=== PATIENT | male | born 1965 | race Two or more races ===

== ENCOUNTER 2025-02-11 15:43 | Emergency (ER) | payer OTHER, SELFPAY ==
[2025-02-11 16:26] VITALS: BP 115/67; PULSE 84; RESP 16; TEMP 37; O2SAT 96; BMI 27.3
--- NOTE | 2025-02-11 16:30 | XR_ITS ---
Examination: CT lumbar spine, without contrast. 2-D sagittal reconstructions. 2-D coronal reconstructions. 3-D reconstructions. Date and time of exam:February 11, 2025 1752 hours INDICATIONS: Onset back pain beginning 2 days ago CTDI: vol (mGy):21.2 DLP: (mGycm):637 Technique: Multiple 1.25 mm axial sections of the lumbar spine without intravenous contrast have been obtained. 2-D sagittal and coronal reconstructions have been obtained. 3-D reconstructions have been obtained. Low dose protocols were performed. One or more of the following dose reduction techniques were used; automated exposure control, adjustment of the mA and/or KV according to patient size, use of iterative reconstruction technique. Findings: Adequate alignment lumbar vertebral bodies on the lateral view Mild disc narrowing L4-L5, L5-S1 No spondylolisthesis. Lumbar pedicles, laminae, transverse and posterior spinous processes are intact L5-S1 no disc protrusion L4-L5 moderate overall spinal stenosis, axial image 67, 4 mm central lumbar disc bulge, facet arthropathy and thickening of ligamenta flava with mild bilateral L4 ganglionic compression L3-L4 no disc protrusion L2-L3 no disc protrusion L1-L2 no disc protrusion IMPRESSION: L4-L5 moderate overall spinal stenosis, 4 mm central lumbar disc bulge, facet arthropathy and thickening of ligamentum flavum with mild bilateral L4 ganglionic compression
--- NOTE | 2025-02-11 16:30 | PD.EDRME ---
Rapid Medical Screening Exam RME Arrival date/time: 02/11/25 15:43 This is a case of 60-year-old male who came in in the emergency room due to lower back pain patient has history of back surgery patient have on and off lower back pain until today worsening of the pain now with pain radiating to the left lower extremities with tingling sensation denies any numbness weakness or incontinence to urine or stool Chief Complaint: Back Pain/Injury Time Seen by Provider: 02/11/25 16:30 Vital signs: Vital Signs Temperature 98.6 F 02/11/25 16:26 Pulse Rate 84 02/11/25 16:26 Respiratory Rate 16 02/11/25 16:26 Blood Pressure 115/67 02/11/25 16:26 Pulse Oximetry (%) 96 02/11/25 16:26 Oxygen Delivery Method Room Air 02/11/25 16:26
[2025-02-11 20:47] VITALS: BP 122/74; PULSE 76; RESP 16; TEMP 36.8; O2SAT 97
[2025-02-11] MEDS: KETOROLAC INJ 60 MG/2 ML VIAL 30 MG IM (20:47)
== END 2025-02-11 21:10 | disposition left against medical advice (07) ==
LOC: SERX 17:12
PROVIDERS: Emergency Provider Emergency Medicine; PCP Family Medicine
DX: M47.816 Spondylosis without myelopathy or radiculopathy, lumbar region (principal); Z53.29 Procedure and treatment not carried out because of patient's decision for other reasons; M48.061 Spinal stenosis, lumbar region without neurogenic claudication; G95.29 Other cord compression
CPT/HCPCS: 72131; 96372; 99281; J1885

== ENCOUNTER 2025-02-13 04:07 | Emergency (ER) | payer MEDICARE, MEDICAID, SELFPAY ==
[2025-02-13] VITALS (10 sets, daily range): BP systolic 111–150; BP diastolic 68–88; PULSE 67–84; RESP 16–19; TEMP 36.4–37; O2SAT 92–97; BMI 27.3
--- NOTE | 2025-02-13 04:15 | EDNOTE_ITS ---
ED Back Injury Pain RME/HPI General Chief Complaint: Back Pain/Injury Stated Complaint: BACK PAIN Time Seen by Provider: 02/13/25 04:16 Arrival date/time: 02/13/25 04:07 RME / HPI RME / HPI Narrative: Dr. Hernandez?s Main ED Evaluation: 60yo male with a history of chronic back pain after a fall down the stairs 3 years ago [place] from home presents to the ED for a chief complaint of chronic back pain that radiates down to his legs. Patient states his chronic back pain significantly worsened yesterday morning and did not improve after he took his prescribed Percocet at 0700. Patient states he has been unable to hold anything down since yesterday and was unable to tolerate the pain, so he came in for evaluation. Patient denies any fever, chills, urinary/bowel incontinence or any other associated symptoms. Patient does have an appointment with his PCP on Wednesday. Related Data Allergies Allergy/AdvReac Type Severity Reaction Status Date / Time iodine Allergy Intermediate Rash Verified 02/13/25 05:04 Opioids - Morphine Analogues Allergy RASH Verified 02/13/25 05:04 Review of Systems Review of Systems Systems Reviewed: All systems reviewed, normal except as documented Past Medical History Social History SMOKING STATUS: Former smoker ED Exam Narrative Physical exam: GEN. APPEARANCE: The patient is alert awake oriented X-3 in no distress, appears uncomfortable. Patient has good eye contact. Patient is cooperative. VITALS: All vitals were reviewed and the pulse ox is 95% on room air which is normal according to my interpretation. HEENT: Normocephalic, atraumatic. Pupils are equal and reactive. Oral mucosa is moist. Patent Nares NECK: Supple, nontender, no thyromegaly, no meningismus, no JVD CHEST: Symmetrical, atraumatic, and with equal expansion , Nontender on palpation no deformity and no crepitus. CARDIOVASCULAR: Heart regular rhythm no murmur or gallop rub or extra beats. LUNGS: Clear to auscultation bilaterally with symmetrical chest rise. No laboring tachypnea or wheezing. No intercostal subcostal retraction. No rales and no rhonchi. ABDOMEN: Soft, flat, nontender to palpation, no guarding or rebound tenderness. There are no abnormal masses palpated. Active and normal bowel sounds. EXTREMITIES: Nontender. No edema. No cyanosis. Patient is able to move all 4 extremities well, with full ROM and good CSM. SKIN: Warm and dry, no jaundice or rashes noted. Well-healed surgical scar at the thoracic spine. NEURO: Patient is BLANCO x 4, Cranial nerves II through XII grossly intact. There is no focal neurologic deficits noted. GCS is 15, PNS and [employer]ENT[employer] ASSOCIATE appear grossly intact. PSYCHIATRIC: Patient is in normal mood and affect. Course Quality Measures none Orders Category Date Time Status IV [Insert IV] STAT Care 02/13/25 05:10 Active Ondansetron Inj [Zofran Inj] Med 02/13/25 04:18 Discontinued 4 mg IVP X1 ONE fentaNYL INJ [Sublimaze Inj] Med 02/13/25 04:23 Discontinued 50 mcg IVP X1 ONE Vital Signs Vital signs: Vital Signs Temperature 98.5 F 02/13/25 04:10 Pulse Rate 74 02/13/25 04:10 Respiratory Rate 18 02/13/25 04:10 Blood Pressure 111/68 02/13/25 04:10 Pulse Oximetry (%) 95 02/13/25 04:10 Oxygen Delivery Method Room Air 02/13/25 04:10 Back Pain / Injury MDM Narrative MDM Narrative:: Scribe Attestation: 02/13/25 - Ariana Bryan am scribing for and in the presence of Dr. Hernandez. Patient data External records reviewed:: [facility] previous records (Per chart review, patient was seen here 2 days ago for back pain and had a work-up done, but eloped.) and EMS form Clinical information provided by:: patient Social determinants that could affect healthcare access:: none Patient has the following chronic illnesses:: none How is presenting disease/condition affected by chronic disease/condition?: no chronic disease Evaluation data The following diagnostics were reviewed and interpreted by me:: lab results Lab and/or radiology exams considered but not ordered:: none Interpretation Summary: Labs pending at signout. Medications / Prescriptions Medications or Prescriptions considered but not ordered:: none Medication administrations:: Medication Administration History Discontinued Medications Fentanyl Citrate (Fentanyl Cit Inj 50 Mcg/Ml Amp 2ml) 50 mcg IVP X1 ONE Stop: 02/13/25 04:24 Last Admin: 02/13/25 05:16 Dose: 50 mcg Documented By: MUSA Ondansetron HCl (Ondansetron Inj 2 Mg/Ml Inj 2 Ml) 4 mg IVP X1 ONE; Protocol Stop: 02/13/25 04:19 Last Admin: 02/13/25 05:15 Dose: 4 mg Documented By: CB see above Consultations Consultation(s) initiated? (list below): No Diagnosis Differential diagnosis back pain/injury: other (chronic back pain, sciatic nerve pain, metabolic disturbance) Most likely diagnosis given after review of the tests above:: dx pending at signout Admission Indicated Admission indicated?: not indicated Admission Request Was there a request for admission?: No Disposition Plan Disposition Plan: other (specify) (Signed out to the next oncoming provider at 0600 pending labs.) Discharge Plan Prescriptions/Referrals Referrals: Andres Stanford DO [Primary Care Provider] - In 1 week Problem List Clinical Impression: Chronic back pain, Vomiting Patient/Caregiver Discharge Instructions Print Language: Vietnamese
[2025-02-13] MEDS: ONDANSETRON INJ 2 MG/ML INJ 2 ML 4 MG IVP ×2 (05:15→16:01)
[2025-02-13] MEDS: fentaNYL CIT INJ 50 mCg/ML AMP 2ML IVP (05:16)
[2025-02-13 06:44] LABS: Alanine Aminotransferase 12 U/L (10-49); Albumin, Serum 4.3 gm/dL (3.5-5.0); Albumin/Globulin Ratio 1.7 (1.2-2.2); Alkaline Phosphatase 81 U/L (46-116); Anion Gap 7 (7-16); Aspartate Amino Transferase 18 U/L (0-34); BUN/Creatinine Ratio 10 Ratio (12-20); Bilirubin,Total 2.1 mg/dL (0.3-1.2); Blood Urea Nitrogen 8 mg/dL (9-23); Calcium 8.8 mg/dL (8.3-10.6); Calcium (Corrected) 8.8 mg/dL (8.5-10.1); Carbon Dioxide 24.9 mMol/L (20.0-31.0); Chloride 104 mMol/L (98-107); Creatinine (Component) 0.8 mg/dL (0.6-1.3); Estimated Creatinine Clearance 96.2 mL/min (>60); Globulin 2.6 gm/dL (2.3-3.5); Glucose 119 mg/dL (74-106); Osmolality,Calculated 271 (275-295); Potassium 3.8 mMol/L (3.4-5.1); Sodium 136 mMol/L (136-145); Total Protein 6.9 gm/dL (5.7-8.2); Troponin I < 0.020 ng/mL (0.0-0.045); eGFR > 60 See Note
[2025-02-13 06:48] LABS: COVID-19 Antigen (In-House) Negative (Negative)
[2025-02-13 06:52] LABS: Basophils # (Auto) 0.0 Thou/mm3 (0.0-0.2); Basophils % (Auto) 0 % (0-2.5); Eosinophils # (Auto) 0.0 Thou/mm3 (0.0-0.5); Eosinophils % (Auto) 0 % (0-10); Hematocrit 44.4 % (41.0-53.0); Hemoglobin 15.1 g/dL (13.5-16.0); Immature Granulocytes Auto 0.04 Thou/mm3 (0.00-0.00); Lymphocytes # (Auto) 2.1 Thou/mm3 (1.0-4.8); Lymphocytes % (Auto) 16 % (10-50); Mean Corpuscular HGB Conc 34.0 g/dl (31.0-37.0); Mean Corpuscular Hemoglobin 29.4 pg (25.0-35.0); Mean Corpuscular Volume 87 fL (80-100); Monocytes # (Auto) 0.9 Thou/mm3 (0.0-0.8); Monocytes % (Auto) 7 % (0-12); Neutrophils # (Auto) 10.6 Thou/mm3 (1.8-7.7); Neutrophils % (Auto) 77 % (37-80); Nucleated Red Blood Cell # 0.00 Thou/mm3 (0.00-0.00); Nucleated Red Blood Cell % 0 /100 WBC (0); Platelet Count 245 Thou/mm3 (140-440); RDW Standard Deviation 46.8 fL (35.1-43.9); Red Blood Count 5.13 Miln/mm3 (4.50-5.90); White Blood Count 13.7 Thou/mm3 (3.8-10.6)
[2025-02-13 07:39] LABS: INR 1.0 (0.9-1.3); Prothrombin Time 11.2 Seconds (9.0-12.2)
[2025-02-13] MEDS: KETOROLAC INJ 30 MG/ML VIAL 15 MG IVP (08:06)
[2025-02-13 08:47] LABS: Collection Type, Urine Catheter; Squamous Epithelial Cell,Urine 0 /hpf (0-5)
[2025-02-13 08:54] LABS: Amorphous Crystals,Urine Present (Absent); Bacteria,Urine Rare; Bilirubin,Urine Negative (Negative); Blood,Urine Negative (Negative); Clarity,Urine Turbid (Clear/Hazy); Color,Urine Yellow (Lt Yel-Yel); Culture Indicated,Urine Not Indicated; Glucose, Urine Negative (Negative); Ketones,Urine 1+ (Negative); Leukocyte Esterase,Urine Negative (Negative); Nitrite,Urine Negative (Negative); PH,Urine 8.0 (5.0-7.0); Protein,Urine Negative (Neg - Trace); RBC,Urine 7 /hpf (0-3); Specific Gravity,Urine 1.021 (1.001-1.035); Urobilinogen,Urine 2.0 mg/dL (0.0-1.0); WBC,Urine 4 /hpf (0-5)
--- NOTE | 2025-02-13 12:54 | XR_ITS ---
Examination: CT abdomen and pelvis without contrast. Coronal 3-D reconstructions. Sagittal 2-D reconstructions. Date and time of exam:February 13, 2025 1336 hours INDICATIONS: Back pain with hematuria beginning 2 days ago CTDI: vol (mGy): 7.26 DLP: (mGycm): 438 Technique: Axial images of the abdomen have been obtained, 3 mm slice thickness Intravenous contrast material has not been administered. Low dose protocols were performed. One or more of the following dose reduction techniques were used; automated exposure control, adjustment of the mA and/or KV according to patient size, use of iterative reconstruction technique. Findings: No focal liver lesions No gallstones Spleen is not visualized No pancreatic mass No renal or ureteral calculi, no hydronephrosis Aorta normal size No bowel obstruction Normal appendix No diverticulitis Normal seminal vesicles No prostatomegaly No bladder mass or bladder calculi Satisfactory alignment lumbar vertebral bodies Transpedicular stabilization T10-T11 IMPRESSION: No renal or ureteral calculi, no hydronephrosis Normal appendix No bowel obstruction or diverticulitis
--- NOTE | 2025-02-13 12:55 | XR_ITS ---
Examination: CT thoracic spine, without contrast. 2-D sagittal reconstructions. 2-D coronal reconstructions. 3-D reconstructions. Date and time of exam:February 13, 2025 1336 hours INDICATIONS: Lower back pain beginning 2 days ago, back surgery 2 years ago CTDI: vol (mGy):23.8 DLP: (mGycm):924 Technique: Multiple 1.25 mm axial sections of the thoracic spine without intravenous contrast have been obtained. 2-D sagittal and coronal reconstructions have been obtained. 3-D reconstructions have been obtained. Low dose protocols were performed. One or more of the following dose reduction techniques were used; automated exposure control, adjustment of the mA and/or KV according to patient size, use of iterative reconstruction technique. Findings: Moderate osteopenia Thoracic stabilization T10-T11 with anatomic alignment Adequate alignment thoracic vertebral bodies Minimal thoracic spondylosis No thoracic fracture Minimal diffuse thoracic disc narrowing No cortical bone destruction IMPRESSION: Thoracic stabilization T10-T11 with anatomic alignment No thoracic fracture Minimal diffuse thoracic disc narrowing
--- NOTE | 2025-02-13 12:55 | XR_ITS ---
Examination: CT lumbar spine, without contrast. 2-D sagittal reconstructions. 2-D coronal reconstructions. 3-D reconstructions. Date and time of exam:February 13, 2025 1336 hours Comparison February 11, 2025 CTDI: vol (mGy):20.4 DLP: (mGycm):715 INDICATIONS: Lower back pain beginning 2 days ago, back surgery 2 years ago Technique: Multiple 1.25 mm axial sections of the lumbar spine have been obtained. 2-D sagittal and coronal reconstructions have been obtained. 3-D reconstructions have been obtained. Low dose protocols were performed. One or more of the following dose reduction techniques were used; automated exposure control, adjustment of the mA and/or KV according to patient size, use of iterative reconstruction technique. Findings: Mild osteopenia. Adequate alignment lumbar vertebral bodies on the lateral view No lumbar fracture No spondylolisthesis Lumbar pedicles, laminae, transverse and posterior spinous processes intact L5-S1 no disc protrusion L4-L5 moderate overall spinal stenosis, axial image 100, 4 mm central lumbar disc bulge, facet arthropathy and thickening of ligamentum flavum with mild bilateral L4 ganglionic compression Cephalad levels unremarkable IMPRESSION: No lumbar fracture L4-L5 moderate overall spinal stenosis as above Consider elective MRI lumbar spine without contrast follow-up
--- NOTE | 2025-02-13 15:55 | EDNOTE_ITS ---
Emergency Room Addendum <Winter Stauffer MD - Last Filed: 02/13/25 16:00> Addendum Narrative: Patient care taken over from Dr. Hernandez. 60 yo male patient with chronic back pain previously treated at [place], now with new insurance, coming in complaining of back pain with radiation to legs. No new symptoms. Also c/o not able to take his prescribed percocet at home due to nausea. Has not been taking the percocet. Asking for pain medicine. States he's allergic to morphine. Toradol ordered. Patient received Toradol. Still c/o pain. Fentanyl ordered. <Ariana Butts - Last Filed: 02/23/25 19:39> Addendum Narrative: 0600: Care assumed from Dr. Hernandez, the previous shift emergency physician. Past medical, surgical, social and family history reviewed. Vitals and home medications reviewed. Results and treatment plan discussed. I will assume the care of the patient at this time and will follow the patient, pending labs. Please refer to the emergency department record for history and examination from initial visit. 60 yo male patient with chronic back pain previously treated at [place], now with new insurance, coming in complaining of back pain with radiation to legs. No new symptoms. Also c/o not able to take his prescribed percocet at home due to nausea. Has not been taking the percocet. Asking for pain medicine. States he's allergic to morphine. Toradol ordered. Patient received Toradol. Still c/o pain. Fentanyl ordered. Labs show WBC 13.7, Total Bilirubin 2.1, Troponin normal, UA negative for UTI. CT scans are unremarkable for any acute findings. Patient feels significantly better after receiving pain medications and is stable to be discharged. RADIOLOGY RESULTS: [facility] Report Signed Patient: PAPI LOU [place]. Record#: [id number] Birthdate: 1965 Age/Sex: 60 / M Location: SER Attending Dr: Ordering Physician: Winter Stauffer MD Date of Service: 02/13/25 Procedure(s): CT thoracic spine wo con Accession Number(s): [id number] cc: Andres Stanford DO; Alan Reyes MD; Winter Stauffer MD~ Examination: CT thoracic spine, without contrast. 2-D sagittal reconstructions. 2-D coronal reconstructions. 3-D reconstructions. Date and time of exam:February 13, 2025 1336 hours INDICATIONS: Lower back pain beginning 2 days ago, back surgery 2 years ago CTDI: vol (mGy):23.8 DLP: (mGycm):924 Technique: Multiple 1.25 mm axial sections of the thoracic spine without intravenous contrast have been obtained. 2-D sagittal and coronal reconstructions have been obtained. 3-D reconstructions have been obtained. Low dose protocols were performed. One or more of the following dose reduction techniques were used; automated exposure control, adjustment of the mA and/or KV according to patient size, use of iterative reconstruction technique. Findings: Moderate osteopenia Thoracic stabilization T10-T11 with anatomic alignment Adequate alignment thoracic vertebral bodies Minimal thoracic spondylosis No thoracic fracture Minimal diffuse thoracic disc narrowing No cortical bone destruction IMPRESSION: Thoracic stabilization T10-T11 with anatomic alignment No thoracic fracture Minimal diffuse thoracic disc narrowing Dictated By: Alan Reyes MD Signed By: <Electronically signed by Alan Reyes MD in OV> 02/13/25 1416 [facility] Report Signed Patient: PAPI LOU. Record#: [id number] Birthdate: 1965 Age/Sex: 60 / M Location: [facility] Attending Dr: Ordering Physician: Winter Stauffer MD Date of Service: 02/13/25 Procedure(s): CT lumbar spine wo [facility] Accession Number(s): [id number] cc: Andres Stanford DO; Alan Reyes MD; Winter Stauffer MD~ Examination: CT lumbar spine, without contrast. 2-D sagittal reconstructions. 2-D coronal reconstructions. 3-D reconstructions. Date and time of exam:February 13, 2025 1336 hours Comparison February 11, 2025 CTDI: vol (mGy):20.4 DLP: (mGycm):715 INDICATIONS: Lower back pain beginning 2 days ago, back surgery 2 years ago Technique: Multiple 1.25 mm axial sections of the lumbar spine have been obtained. 2-D sagittal and coronal reconstructions have been obtained. 3-D reconstructions have been obtained. Low dose protocols were performed. One or more of the following dose reduction techniques were used; automated exposure control, adjustment of the mA and/or KV according to patient size, use of iterative reconstruction technique. Findings: Mild osteopenia. Adequate alignment lumbar vertebral bodies on the lateral view No lumbar fracture No spondylolisthesis Lumbar pedicles, laminae, transverse and posterior spinous processes intact L5-S1 no disc protrusion L4-L5 moderate overall spinal stenosis, axial image 100, 4 mm central lumbar disc bulge, facet arthropathy and thickening of ligamentum flavum with mild bilateral L4 ganglionic compression Cephalad levels unremarkable IMPRESSION: No lumbar fracture L4-L5 moderate overall spinal stenosis as above Consider elective MRI lumbar spine without contrast follow-up Dictated By: Alan Reyes MD Signed By: <Electronically signed by Alan Reyes MD in OV> 02/13/25 1418 [facility] Report Signed Patient: PAPI LOU. Record#: [id number] Birthdate: 1965 Age/Sex: 60 / M Location: [facility] Attending Dr: Ordering Physician: Winter Stauffer MD Date of Service: 02/13/25 Procedure(s): CT abdomen pelvis wo con Accession Number(s): [id number] cc: Andres Stanford DO; Alan Reyes MD; Winter Stauffer MD~ Examination: CT abdomen and pelvis without contrast. Coronal 3-D reconstructions. Sagittal 2-D reconstructions. Date and time of exam:February 13, 2025 1336 hours INDICATIONS: Back pain with hematuria beginning 2 days ago CTDI: vol (mGy): 7.26 DLP: (mGycm): 438 Technique: Axial images of the abdomen have been obtained, 3 mm slice thickness Intravenous contrast material has not been administered. Low dose protocols were performed. One or more of the following dose reduction techniques were used; automated exposure control, adjustment of the mA and/or KV according to patient size, use of iterative reconstruction technique. Findings: No focal liver lesions No gallstones Spleen is not visualized No pancreatic mass No renal or ureteral calculi, no hydronephrosis Aorta normal size No bowel obstruction Normal appendix No diverticulitis Normal seminal vesicles No prostatomegaly No bladder mass or bladder calculi Satisfactory alignment lumbar vertebral bodies Transpedicular stabilization T10-T11 IMPRESSION: No renal or ureteral calculi, no hydronephrosis Normal appendix No bowel obstruction or diverticulitis Dictated By: Alan Reyes MD Signed By: <Electronically signed by Alan Reyes MD in OV> 02/13/25 2450
[2025-02-13] MEDS: fentaNYL CIT INJ 50 mCg/ML AMP 2ML 100 MCG IVP (16:02)
== END 2025-02-13 17:11 | disposition home or self-care (01) ==
PROVIDERS: Emergency Medicine; Emergency Provider Emergency Medicine; PCP Family Medicine
DX: G89.29 Other chronic pain (principal); M54.9 Dorsalgia, unspecified; M48.061 Spinal stenosis, lumbar region without neurogenic claudication; M48.8X4 Other specified spondylopathies, thoracic region
CPT/HCPCS: 36415; 72128; 72131; 74176; 80053; 81001; 84484; 85025; 85610; 87400; 87811; 96374; 96375; 96376; 99284; J1885; J2405; J3010

== ENCOUNTER 2025-07-12 10:49 | Emergency (ER) | payer MEDICARE, SELFPAY ==
[2025-07-12 11:36] VITALS: BP 107/76; PULSE 79; RESP 18; TEMP 36.8; O2SAT 97; BMI 25.7
--- NOTE | 2025-07-12 11:41 | XR_ITS ---
EXAMINATION: PA lateral chest 2 views TECHNIQUE: Upright PA lateral chest 2 views Date and time: July 12, 2025, 12:20 p.m. INDICATIONS: Chest pain with coughing beginning 3 days ago. FINDINGS: Normal heart size Minor atelectasis left base Right internal jugular Port-A-Cath tip satisfactory position Surgical clips soft tissue right neck No pneumonia or pulmonary edema Right axillary surgical clips Increased AP dimension chest Transpedicular lower thoracic stabilization IMPRESSION: No pneumonia or pulmonary edema
[2025-07-12 12:41] LABS: Basophils # (Auto) 0.0 Thou/mm3 (0.0-0.2); Basophils % (Auto) 0 % (0-2.5); Eosinophils # (Auto) 0.4 Thou/mm3 (0.0-0.5); Eosinophils % (Auto) 4 % (0-10); Hematocrit 46.2 % (41.0-53.0); Hemoglobin 15.1 g/dL (13.5-16.0); Immature Granulocytes Auto 0.03 Thou/mm3 (0.00-0.00); Lymphocytes # (Auto) 2.1 Thou/mm3 (1.0-4.8); Lymphocytes % (Auto) 23 % (10-50); Mean Corpuscular HGB Conc 32.7 g/dl (31.0-37.0); Mean Corpuscular Hemoglobin 28.8 pg (25.0-35.0); Mean Corpuscular Volume 88 fL (80-100); Monocytes # (Auto) 0.9 Thou/mm3 (0.0-0.8); Monocytes % (Auto) 10 % (0-12); Neutrophils # (Auto) 5.5 Thou/mm3 (1.8-7.7); Neutrophils % (Auto) 62 % (37-80); Nucleated Red Blood Cell # 0.00 Thou/mm3 (0.00-0.00); Nucleated Red Blood Cell % 0 /100 WBC (0); Platelet Count 286 Thou/mm3 (140-440); RDW Standard Deviation 45.7 fL (35.1-43.9); Red Blood Count 5.25 Miln/mm3 (4.50-5.90); White Blood Count 8.9 Thou/mm3 (3.8-10.6)
[2025-07-12 12:44] LABS: Collection Type, Urine Clean Catch; Squamous Epithelial Cell,Urine 0 /hpf (0-5)
[2025-07-12 12:51] LABS: Amorphous Crystals,Urine Present (Absent); Bacteria,Urine Rare; Bilirubin,Urine Negative (Negative); Blood,Urine Trace (Negative); Clarity,Urine Clear (Clear/Hazy); Color,Urine Yellow (Lt Yel-Yel); Culture Indicated,Urine Not Indicated; Glucose, Urine Negative (Negative); Ketones,Urine Negative (Negative); Leukocyte Esterase,Urine Negative (Negative); Nitrite,Urine Negative (Negative); PH,Urine 6.0 (5.0-7.0); Protein,Urine Trace (Neg - Trace); RBC,Urine 5 /hpf (0-3); Specific Gravity,Urine 1.024 (1.001-1.035); Urobilinogen,Urine Negative mg/dL (0.0-1.0); WBC,Urine 1 /hpf (0-5)
[2025-07-12 13:07] LABS: Alanine Aminotransferase 16 U/L (10-49); Albumin, Serum 4.6 gm/dL (3.5-5.0); Albumin/Globulin Ratio 1.6 (1.2-2.2); Alkaline Phosphatase 85 U/L (46-116); Anion Gap 9 (7-16); Aspartate Amino Transferase 24 U/L (0-34); BUN/Creatinine Ratio 10 Ratio (12-20); Bilirubin,Total 1.1 mg/dL (0.3-1.2); Blood Urea Nitrogen 10 mg/dL (9-23); Calcium 8.9 mg/dL (8.3-10.6); Calcium (Corrected) 8.9 mg/dL (8.5-10.1); Carbon Dioxide 27.7 mMol/L (20.0-31.0); Chloride 106 mMol/L (98-107); Creatinine (Component) 1.0 mg/dL (0.6-1.3); Estimated Creatinine Clearance 82.1 mL/min (>60); Globulin 2.8 gm/dL (2.3-3.5); Glucose 92 mg/dL (74-106); Osmolality,Calculated 283 (275-295); Potassium 4.2 mMol/L (3.4-5.1); Sodium 143 mMol/L (136-145); Total Protein 7.4 gm/dL (5.7-8.2); eGFR > 60 See Note
[2025-07-12 13:51] VITALS: BP 117/75; PULSE 80; RESP 18; TEMP 36.7; O2SAT 95
--- NOTE | 2025-07-12 15:13 | PD.EDFEVER ---
ED Fever RME/HPI General Chief Complaint: Fever Stated Complaint: CHILLS, FEVER (101.0 TEMPORAL), BODYACHES, COUGH Time Seen by Provider: 07/12/25 11:40 Arrival date/time: 07/12/25 10:49 60-year-old male presents to the emergency department today for complaints of cough, congestion runny nose and fever patient reports sore throat as well patient reports that he tested positive for strep throat patient is been on amoxicillin for last couple of days but reports pain persists in the throat and still has cough Limitations: no limitations Related Data Previous Rx's ?Medication ?Instructions ?Recorded ondansetron 4 mg disintegrating 4 mg PO Q8H PRN nausea and 02/13/25 tablet vomiting #14 tabs Ventolin HFA 90 mcg/actuation 2 puff inhalation Q6H PRN 07/12/25 aerosol inhaler (albuterol sulfate) shortness of breath or wheezing #18 grams azithromycin 500 mg tablet See Rx Instructions PO .COMPLEX #6 07/12/25 tabs benzonatate 100 mg capsule 100 mg PO TID #14 caps 07/12/25 Allergies Allergy/AdvReac Type Severity Reaction Status Date / Time iodine Allergy Intermediate Rash Verified 07/12/25 10:53 Opioids - Morphine Analogues Allergy RASH Verified 07/12/25 10:53 Review of Systems Review of Systems Systems Reviewed: All systems reviewed, normal except as documented Constitutional Constitutional: Reports system reviewed and no additional complaints, except as documented, Reports body ache(s), Reports fever(s) and Reports headache(s) Eyes Eyes: Reports system reviewed and no additional complaints, except as documented and Denies blurry vision ENT Ears, Nose, Mouth, and Throat: Reports system reviewed and no additional complaints, except as documented, Reports headache(s), Reports nasal congestion and Reports nasal discharge Cardiovascular Cardiovascular: Reports system reviewed and no additional complaints, except as documented, Denies chest pain and Denies dyspnea Respiratory Respiratory: Reports system reviewed and no additional complaints, except as documented, Denies chest congestion, Denies cough and Denies dyspnea Gastrointestinal Gastrointestinal: Reports system reviewed and no additional complaints, except as documented and Denies abdominal pain Integumentary/Breasts Skin/Breast: Reports system reviewed and no additional complaints, except as documented and Denies rash Neurologic Neurologic: Reports system reviewed and no additional complaints, except as documented, Reports as per HPI and Reports headache(s) Past Medical History Past Medical History CARDIAC: Negative Congestive Heart Failure RESPIRATORY: Negative Chronic Obstructive Pulmonary Disease (COPD) GENITOURINARY: Negative Renal Disease ENDOCRINE: Negative Diabetes Mellitus Type 1 or Diabetes Mellitus Type 2 Social History SMOKING STATUS: Never smoker Physical Exam General Limitations: no limitations General appearance: alert and in no apparent distress Head Head exam: atraumatic, normocephalic and normal inspection Eye Eye exam: Present normal appearance, PERRL and EOMI; Absent conjunctival injection ENT ENT exam: Present normal exam, normal oropharynx and mucous membranes moist Neck Neck exam: Present normal inspection, full ROM and trachea midline Chest Chest inspection: Present normal inspection and symmetric chest wall rise Respiratory Respiratory exam: Present normal lung sounds bilaterally; Absent respiratory distress, wheezes, stridor, accessory muscle use or prolonged expiratory phase Cardiovascular Cardiovascular exam: Present regular rate, normal rhythm and normal heart sounds Abdominal Exam Abdominal exam: Present soft and normal bowel sounds; Absent distention, tenderness, guarding, rebound or rigidity Extremities Exam Extremities exam: Present normal inspection and full ROM Back Exam Back exam: Present normal inspection and full ROM Neurological Exam Neurological exam: Present alert, oriented X3 and CN II-XII intact Psychiatric Psychiatric exam: Present normal affect and normal mood Skin Skin exam: Present warm, dry, intact and normal color ED Exam General Limitations: Present no limitations General appearance: Present alert and in no apparent distress Head Head exam: Present atraumatic, normocephalic and normal inspection Eye Eye exam: Present normal appearance, PERRL and EOMI; Absent conjunctival injection ENT ENT exam: Present normal exam, normal oropharynx and mucous membranes moist Neck Neck exam: Present normal inspection, full ROM and trachea midline Chest Chest inspection: Present normal inspection and symmetric chest wall rise Respiratory Respiratory exam: Present normal lung sounds bilaterally; Absent respiratory distress, wheezes, stridor, accessory muscle use or prolonged expiratory phase Cardiovascular Cardiovascular exam: Present regular rate, normal rhythm and normal heart sounds Abdominal Exam Abdominal exam: Present soft and normal bowel sounds; Absent distention, tenderness, guarding, rebound or rigidity Extremities Exam Extremities exam: Present normal inspection and full ROM Back Exam Back exam: Present normal inspection and full ROM Neurological Exam Neurological exam: Present alert, oriented X3 and CN II-XII intact Psychiatric Psychiatric exam: Present normal affect and normal mood Skin Skin exam: Present warm, dry, intact and normal color Course Quality Measures none Orders Category Date Time Status XR chest 2V Stat Exams 07/12/25 11:41 Completed CBC Stat Lab 07/12/25 12:18 Completed CMP [Comprehensive Metabolic Panel] Stat Lab 07/12/25 12:18 Completed UA, C/S IF [Urinalysis, C/S if Indicated] Stat Lab 07/12/25 12:20 Completed Vital Signs Vital signs: Vital Signs Temperature 98.2 F 07/12/25 11:36 Pulse Rate 79 07/12/25 11:36 Respiratory Rate 18 07/12/25 11:36 Blood Pressure 107/76 07/12/25 11:36 Pulse Oximetry (%) 97 07/12/25 11:36 Oxygen Delivery Method Room Air 07/12/25 11:36 O2 saturation 97% room air with normal limits Fever MDM Narrative MDM Narrative:: 60-year-old male presents to the emergency department today for complaints of cough, congestion runny nose and fever patient reports sore throat as well patient reports that he tested positive for strep throat patient is been on amoxicillin for last couple of days but reports pain persists in the throat and still has cough Clinically patient well-appearing does not appear ill or toxic no acute distress Patient is no trismus no hoarseness of voice no difficulty swallowing or breathing Lab work and imaging obtained no acute emergent findings noted Patient will be given a prescription for azithromycin as well as benzonatate Patient discharged home in no distress to follow-up with primary care doctor in the next 24 to 48 hours and for any worsening symptoms to return to the ER immediately Patient data External records reviewed:: [facility] previous records Clinical information provided by:: patient Social determinants that could affect healthcare access:: none Patient has the following chronic illnesses:: None How is presenting disease/condition affected by chronic disease/condition?: no chronic disease Evaluation data The following diagnostics were reviewed and interpreted by me:: lab results and radiology exam(s) Lab and/or radiology exams considered but not ordered:: Labs radiology obtained Interpretation Summary: Reviewed by me Medications / Prescriptions Medications or Prescriptions considered but not ordered:: Given Medication administrations:: Given Consultations Consultation(s) initiated? (list below): No Diagnosis Fever Differential Diagnosis: fever of unknown origin, community acquired pneumonia, viral infection and influenza Most likely diagnosis given after review of the tests above:: URI Admission Indicated Admission indicated?: not indicated Admission Request Was there a request for admission?: No Disposition Plan Disposition Plan: Discharge Discharge Attestation Discharge Attestation: The patient and all family members were given an opportunity to ask questions and understood the discharge instructions. Discharge instructions specifically effects, indications for sooner follow up or return to the emergency department, and the expected course of current diagnosis. Patient condition: Stable Discharge Plan Plan Patient Disposition: HOME (Self Care) Discharge Disposition comment: Stable Prescriptions/Referrals Prescriptions/Med Rec: New benzonatate 100 mg capsule 100 mg PO TID Qty: 14 0RF albuterol sulfate [Ventolin HFA] 90 mcg/actuation HFA aerosol inhaler 2 puff inhalation Q6H PRN (Reason: shortness of breath or wheezing) Qty: 18 0RF azithromycin 500 mg tablet See Rx Instructions .ROUTE .COMPLEX Qty: 6 0RF Rx Instructions: take 500 mg today (day 1), then 250 mg for 4 days (days 2-5) No Action ondansetron 4 mg tablet,disintegrating 4 mg PO Q8H PRN (Reason: nausea and vomiting) Qty: 14 0RF Referrals: No Primary/Family,Physician [Primary Care Provider] - In 1 week Problem List Clinical Impression: Pharyngitis Patient/Caregiver Discharge Instructions Education Materials: Self-Care for Sore Throats Additional Instructions: Please follow up with your primary care doctor in the next 24-48hrs for any worsening symptoms return here immediately Print Language: Latvian Stand Alone Forms: Nelsy Award Info., Patient Portal Info Letter PA/MAGICIAN HELPER Supervising Physician PA/MAGICIAN HELPER Supervising Physician: Dr [email or web address]
== END 2025-07-12 13:53 | disposition home or self-care (01) ==
PROVIDERS: Emergency Provider Nurse Practitioner Primary Care
DX: J02.9 Acute pharyngitis, unspecified (principal); R07.9 Chest pain, unspecified
CPT/HCPCS: 36415; 71046; 80053; 81001; 85025; 99283